=== PATIENT | male | born 1960 | race Caucasian/White ===

== ENCOUNTER 2017-02-15 18:03 | Emergency (ER) | payer OTHER ==
[~2017-02-15] VITALS: Ht 185.4 cm; Wt 95.3 kg
--- NOTE | 2017-02-15 18:07 | ED AMS/SEIZURE/WEAK/DIZZY ---
History of Present Illness General Chief Complaint: Seizure Stated Complaint: BIBA S/P SEIZURE Source: patient, old records, EMS Exam Limitations: intoxication Vital Signs & Intake/Output Vital Signs & Intake/Output Vital Signs Date Time Temp Pulse Resp B/P B/P Pulse O2 O2 Flow FiO2 Mean Ox Delivery Rate 02/15 1809 98.6 128 20 114/72 90 Room Air Allergies Coded Allergies: MDX - Poison Ok Extract, Alum Prec (POISON OK EXTRACT, ALUM PRECIPITAT) (01/09) Reconcile Medications No Known Home Medications Triage Nurses Notes Reviewed? yes HPI: Patient brought in after a witnessed tonic-clonic seizure. Patient admits to drinking alcohol today. Patient was cyanotic upon EMS arrival patient states respirations were assisted with bag valve mask. Patient then became postictal and then woke up. Patient states that he has not taken his medication in the long time because he does not want to. Patient states he drinks every day. Patient states that he does not want to be here and is refusing all blood work. Patient denies any injury. (FATOUMATA BARRIGA,NATANAEL Coronel) Past History Medical History Any Pertinent Medical History? see below for history Neurological: seizure Surgical History Surgical History: non-contributory Psychosocial History Who do you live with Significant Other What is your primary language Polish Tobacco Use: Current Daily Use Daily Tobacco Use Amount/Type: => 5 Cigarettes daily ETOH Use: heavy use Illicit Drug Use: denies illicit drug use Family History Hx Contributory? No (NATANAEL HAM MD) Review of Systems Review of Systems Constitutional: Reports: no symptoms. EENTM: Reports: no symptoms. Respiratory: Reports: no symptoms. Cardiovascular: Reports: no symptoms. GI: Reports: no symptoms. Genitourinary: Reports: no symptoms. Musculoskeletal: Reports: no symptoms. Skin: Reports: no symptoms. Neurological/Psychological: Reports: no symptoms. Hematologic/Endocrine: Reports: no symptoms. Immunologic/Allergic: Reports: no symptoms. All Other Systems: Reviewed and Negative (NATANAEL HAM MD) Physical Exam Physical Exam General Appearance: well developed/nourished, alert, awake, anxious, intoxicated Head: atraumatic Eyes: Bilateral: PERRL, EOMI. Ears, Nose, Throat: normal pharynx, normal ENT inspection, hearing grossly normal Neck: normal inspection, supple, full range of motion Respiratory: normal breath sounds, chest non-tender, no respiratory distress, lungs clear Cardiovascular: regular rate/rhythm, normal peripheral pulses Gastrointestinal: normal bowel sounds, soft, non-tender Back: normal inspection, normal range of motion Extremities: normal range of motion Neurologic/Psych: no motor/sensory deficits, awake, alert, oriented x 3, normal mood/affect Skin: intact, normal color, warm/dry Lymphatic: no anterior cervical mendoza Core Measures ACS in differential dx? No CVA/TIA Diagnosis: No Severe Sepsis Present: No Septic Shock Present: No (FATOUMATA BARRIGA,NATANAEL Coronel) Progress Differential Diagnosis: alcohol intoxication, electrolyte imbalance, seizure disorder Plan of Care: OBSERVE IN ER Initial ED EKG: none Hand-Off Endorsed To: RENATO LEYVA MD Endorsed Time: 1899 Pending: other (SOBRIETY) Comments: Patient's breathalyzer was 0.167. Patient increase his stay in the emergency department until he is sober however he is still refusing all blood work. Patient states he has not been taking his medications Namenda will be safe. (FATOUMATA BARRIGA,NATANAEL Coronel) Plan of Care: PATIENT DISCHARGED BY DR HAM IN CARE OF FAMILY MEMBER. (RENATO LEYVA MD) Departure Departure Disposition: HOME OR SELF CARE Condition: Stable Clinical Impression Primary Impression: Seizure Secondary Impressions: Alcohol intoxication Qualifiers: Complication of substance-induced condition: uncomplicated Qualified Code: F10.920 - Alcohol use, unspecified with intoxication, uncomplicated Referrals: VINCENZO BRUNO (PCP/Family) Additional Instructions: PLEASE RETURN IF YOU WOULD LIKE HELP WITH YOUR MEDICATIONS OR TO STOP DRINKING OR FOR ANY CONCERNS Departure Forms: Customer Survey General Discharge Information Prescriptions: Current Visit Scripts No Known Home Medications (FATOUMATA BARRIGA,NATANAEL Coronel)
[2017-02-15 18:09] VITALS: BP 114/72
== END 2017-02-15 19:07 ==
LOC: ERH 18:03
DX: R56.9 Unspecified convulsions (principal); F10.129 Alcohol abuse with intoxication, unspecified

== ENCOUNTER 2017-11-19 15:32 | Inpatient (IN) | payer OTHER ==
[~2017-11-19] VITALS: Ht 185.4 cm; Wt 91.9 kg
--- NOTE | 2017-11-19 15:37 | ED AMS/SEIZURE/WEAK/DIZZY ---
History of Present Illness General Chief Complaint: General Adult Stated Complaint: BIBA MULTIPLE COMPLAINTS Source: patient, family Exam Limitations: no limitations Vital Signs & Intake/Output Vital Signs & Intake/Output Vital Signs Date Time Temp Pulse Resp B/P B/P Pulse O2 O2 Flow FiO2 Mean Ox Delivery Rate 11/20 0620 98.4 96 20 158/86 91 Room Air 11/20 0205 98.8 86 20 160/88 92 Room Air 11/20 0138 85 92 11/19 2152 98.6 76 20 142/76 90 Room Air 11/19 2006 98.4 82 16 132/80 95 Room Air 11/19 1825 98.3 75 18 116/66 95 Room Air 11/19 1552 93 Room Air Room Air 11/19 1547 98.0 81 15 152/84 93 Room Air Room Air ED Intake and Output 11/20 0000 11/19 1200 Intake Total 0 Output Total Balance 0 Intake, Oral 0 Patient 210 lb Weight Weight Reported by Patient Measurement Method Allergies Coded Allergies: poison candelaria extract (Intermediate, RASH 11/19/17) Triage Nurses Notes Reviewed? yes Onset: Abrupt Duration: changing over time Timing: recent history Severity: severe Severity Numbers: 10 HPI: Patient is a 57-year-old male with a past medical history of alcohol abuse, seizures, delirium tremens hypertension who presents emergency room brought in by ambulance for persistent seizures for the past 7-10 years and which she states he's had them approximate 4 times a day where he is compliant with his Dilantin where he states that he is followed up with multiple neurologist" they keep giving me the same medications". He states his last seizure was approximately 4 hours ago. Patient drank 2 beers and 2 shots today Patient is a 2 pack-a-day smoker denies any new shortness of breath or chest pain however is complaining of persistent abdominal pain for the past month, he does present with old records from [facility] and which CT scan does indicate he was diagnosed with mild diverticulitis and was given prescriptions where he was compliant with the medications and he had a 6 cm renal mass noted at the time. Patient is able tolerate by mouth however he is not eating "well" with solid foods no vomiting has occurred Patient is complaining of severe 7 and 10 abdominal and suprapubic pain. Denies any dysuria hematuria. Patient is complaining of chronic back pain Denies any illicit drugs PT AND STATE THAT HE HAS BEEN HAVING INTERMITTENT HALLUCINATIONS AND UPPER EXTREMITY TREMORS FOR THE PAST MONTH HE DOES DRINK ALCOHOL EVERYDAY. (Lewis Garland) Reconcile Medications Albuterol Sulfate (Proair Hfa) 90 MCG HFA.AER.AD 2 PUF INH Q4-6 PRN PRN SOB ( Reported) Amlodipine Besylate 10 MG TABLET 1 TAB PO DAILY HTN (Reported) Benzonatate 100 MG CAPSULE 1 CAP PO TID COUGH (Reported) Budesonide/Formoterol Fumarate (Symbicort 80-4.5 Mcg Inhaler) 80 MCG-4.5 MCG/ ACTUATION HFA.AER.AD 2 PUF INH BID SOB (Reported) Metoprolol Tartrate 50 MG TABLET 1 TAB PO BID HTN (Reported) Phenytoin (Dilantin) 100 MG CAPSULE 5 CAP PO DAILY seizures (Reported) Phenytoin Sodium Extended 100 MG CAPSULE 1 CAP PO TID SEIZURES (Reported) Simvastatin (Simvastatin*) 10 MG TABLET 1 TAB PO QPM HIGH CHOLESTEROL ( Reported) (Mer BARRIGA,Chandler Coronel) Past History Travel History Traveled to [place] past 21 day No Medical History Any Pertinent Medical History? see below for history Neurological: seizure Cardiovascular: hypertension Psychiatric: alcohol dependence Surgical History Surgical History: non-contributory Psychosocial History Who do you live with Significant Other What is your primary language Burkinan Family History Hx Contributory? No (Lewis Garland) Review of Systems Review of Systems Constitutional: Reports: see HPI. EENTM: Reports: no symptoms. Respiratory: Reports: see HPI, cough. Cardiovascular: Reports: see HPI. Denies: chest pain, edema, palpitations. GI: Reports: see HPI, abdominal pain. Genitourinary: Reports: no symptoms. Musculoskeletal: Reports: see HPI, back pain. Skin: Reports: no symptoms. Neurological/Psychological: Reports: see HPI. Hematologic/Endocrine: Reports: no symptoms. Immunologic/Allergic: Reports: no symptoms. All Other Systems: Reviewed and Negative (Lewis Garland) Physical Exam Physical Exam General Appearance: no apparent distress, alert Head: atraumatic Eyes: Bilateral: normal appearance, PERRL, EOMI, other (HORIZONTAL NYSTAGMUS). Ears, Nose, Throat: normal pharynx, normal ENT inspection, hearing grossly normal Neck: supple Respiratory: no respiratory distress, quiet respiration, lungs clear Cardiovascular: regular rate/rhythm Gastrointestinal: normal bowel sounds, soft, tenderness Extremities: normal range of motion Neurologic/Psych: no motor/sensory deficits, awake, alert, disoriented x 3, NOTED VOLUNTARY UPPER EXTREMITY TREMORS Skin: intact, normal color Core Measures ACS in differential dx? Yes CVA/TIA Diagnosis No Sepsis Present: No Sepsis Focused Exam Completed? No (Cheyenne LORD,Lewis) Progress Differential Diagnosis: arrythmia, alcohol intoxication, anemia, benign positional vertigo, CVA/stroke, dehydration, drug intoxication, encephalitis, electrolyte imbalance, GI bleed, hypoglycemia, hypoxia, intracranial Hem., intracranial mass/tumor, labrynthitis, meningitis, Meniere's disease, migraine BOURNE, pneumonia, postural hypotension, presyncope, post-traumatic vertigo, sepsis, seizure disorder, subarachnoid Hem., UTI/pyelo, vertebrobasilar insuff Plan of Care: Orders Procedure Date/time Status Nothing by Mouth 11/20 B Active HEPATITIS PANEL 11/20 599 Active CBC WITHOUT DIFFERENTIAL 11/20 599 Active BASIC ELECTROLYTES PLUS BUN&CR 11/20 599 Active Precautions 11/20 0019 Active CONTIN. POSITIVE AIRWAY PRESS 11/20 UNK Complete Weight 11/19 223 Active Vital Signs 11/19 2233 Active Teach/Educate 11/19 2233 Active Pain Treatment and Response 11/19 2233 Active Nutritional Intake, Monitor 11/19 2233 Active Isolation 11/19 2233 Active Intake & Output 11/19 2233 Active Patient Care Conference 11/19 2233 Active Activity/Ambulation 11/19 2233 Active Add-on Test (ER Only) 11/19 2054 Active Pathway - chart 11/19 2037 Active House Staff 11/19 2037 Active Patient Data 11/19 1918 Active ED Holding Orders 11/19 191 Active Admit to inpatient 11/19 191 Active Vital Signs 11/19 191 Active Code Status 11/19 191 Active LACTIC ACID 11/19 1855 Complete Add-on Test (ER Only) 11/19 1726 Active US-LIMITED ABDOMEN 11/19 1709 Active Add-on Test (ER Only) 11/19 1709 Active Telemetry/Women Nurse 11/19 1613 Active TYPE & SCREEN (NOT X-MATCH) 11/19 1609 Complete PROLACTIN 11/19 1608 Complete MAGNESIUM 11/19 1608 Complete GAMMA GLUTAMYL TRANSFERASE 11/19 1608 Complete DIRECT BILIRUBIN 11/19 1608 Complete AMMONIA 11/19 1602 Complete PARTIAL THROMBOPLASTIN TIME 11/19 1555 Complete PROTHROMBIN TIME 11/19 1555 Complete LACTIC ACID 11/19 1555 Complete Intake & Output 11/19 1548 Active CIWA 11/19 1539 Complete URINE DRUG SCREEN FOR ER ONLY 11/19 1539 Complete TROPONIN LEVEL 11/19 1539 Complete LIPASE 11/19 1539 Complete ETHANOL 11/19 1539 Complete DILANTIN 11/19 1539 Complete COMPREHENSIVE METABOLIC PANEL 11/19 1539 Complete CBC WITHOUT DIFFERENTIAL 11/19 1539 Complete AMYLASE 11/19 1539 Complete EKG 11/19 1539 Active HEPATIC FUNCTION PANEL 11/19 0600 Active US-COMPLETE ABDOMEN 11/19 UNK Active TRC EVALUATION (GEN) 11/19 UNK Active CONTIN. POSITIVE AIRWAY PRESS 11/19 UNK Complete Lab Add-on Test 11/19 UNK Active VTE Mechanical Prophylaxis 11/19 UNK Active Vital Signs 11/19 UNK Complete Seizure Precautions 11/19 UNK Active CIWA 11/19 UNK Active Current Medications Sig/Dee Start time Last Medication Dose Stop Time Status Admin Amlodipine Besylate 10 MG DAILY 11/20 1000 AC (Norvasc) Budesonide/ 2 PUF BID 11/20 1000 AC Formoterol Fumarate (SYMBICORT) Metoprolol Tartrate 50 MG BID 11/20 1000 AC (Lopressor) Phenytoin 500 MG DAILY 11/20 1000 UNVr (Dilantin ER) Dextrose/Sodium 1,000 ML Q13H 11/19 2315 AC 11/19 Chloride 2333 (D5W-1/2 Normal Saline 1000ML) Albuterol Sulfate 2 PUF Q4-6 PRN PRN 11/19 2244 AC (Ventolin) Hydromorphone HCl 2 MG Q5 PRN 11/19 2245 AC 11/20 (Dilaudid) 0611 Nicotine 21 MG DAILY 11/19 224 AC 11/20 (Nicoderm) 0119 Heparin Sodium 5,000 UNIT Q8 11/19 223 AC 11/20 (Porcine) 0608 Lorazepam 0 Q1P PRN 11/19 223 AC (Ativan) Thiamine HCl 100 MG DAILY 11/19 2137 AC 11/19 (Vitamin B-1) 2330 Sodium Chloride 50 ML (Normal Saline 50ML Bag) Multivitamins 1 TAB DAILY 11/19 2037 AC (Theragran Vitamins) Laboratory Tests 04/07/18 1928: Lactic Acid 2.1 11/19/17 1609: Lactic Acid 2.5 H 11/19/17 1609: Ammonia 13, PT 10.9, INR 1.00, APTT 32, Urine Opiates Screen < 100, Methadone Screen 45, Barbiturate Screen < 60, Ur Phencyclidine Scrn < 6.00, Amphetamines Screen 108, U Benzodiazepines Scrn < 85, Urine Cocaine Screen < 50, Urine Cannabis Screen 6.50 11/19/17 1608: Anion Gap 13, Estimated GFR > 60, BUN/Creatinine Ratio 15.6, Glucose 115 H, Calcium 8.5, Magnesium 1.6, Total Bilirubin 1.7 H, Direct Bilirubin 1.3 H, GGT 1751 H, AST 331 H, ALT 195 H, Alkaline Phosphatase 224 H, Troponin I < 0.01, Total Protein 7.2, Albumin 3.4 L, Globulin 3.8, Albumin/Globulin Ratio 0.9 L, Amylase 39, Lipase 345 H, Prolactin 9.2, CBC w Diff NO MAN DIFF REQ, RBC 5.92, MCV 94.1 H, MCH 31.4 H, MCHC 33.4, RDW 15.9 H, MPV 7.8, Gran % 68.8, Lymphocytes % 23.2, Monocytes % 7.1, Eosinophils % 0.7, Basophils % 0.2, Absolute Granulocytes 6.9 H, Absolute Lymphocytes 2.3, Absolute Monocytes 0.7 H, Absolute Eosinophils 0.1, Absolute Basophils 0, Phenytoin 10.2, Serum Alcohol 290.0 Upon initial examination patient is resting comfortably at bedside however is disoriented 3 Patient was placed with a clinical research monitor in which there is noted a run of V. tach versus wide complex QRS OR ARTIFACT, Patient was prophylactically administered magnesium Dr. Del Angel was more SUSPICIOUS OF ARTIFACT THAN V. tach however he did discuss patient with volunteer fire fighter Dr. Tavarez I reviewed patient's blood work in which she had elevated liver and gallbladder enzymes however patient's alcohol was nearly 300. Patient was offered alcohol detoxification evaluation and treatment in which he declines this CT scan was resulted in which there is a 1.5 cm gallstone in the gallbladder neck Discussed patient with surgeon Dr. Baltazar who will consult Due to patient's continued abdominal pain and elevated liver enzymes, BILIRUBIN and gallstone that admission was warranted I also discussed the telemetry artifact with Dr. Tavarez who was able to observe and evaluate the picture of the suspecting artifact versus V. tach where he states it is artifact Diagnostic Imaging: Viewed by Me: CT Scan. Radiology Impression: SEE COMMENTS Initial ED EK BPM,SINUS RHYTHM Comments: PATIENT: PJ LUNA PRESENT AGE: 57 PATIENT ACCOUNT NO: [id number] : 61 LOCATION: [facility] ORDERING PHYSICIAN: Lewis LORD SERVICE DATE: 11/19/17 EXAM TYPE: CAT - CT ABD & PELVIS W IV CONTRAST EXAMINATION: CT ABD PELVIS W IV CONTRAST CLINICAL INFORMATION: Reason for Study:
Presumptive Dx: ABDOMINAL PAIN, ELEVATED LFT,BILI,
Signs Symptoms: RM 19
COMPARISON: None TECHNIQUE: Multidetector volumetric imaging was performed from the superior aspect of the liver through the pubic symphysis 95 mL of Optiray 320 injected Sagittal and coronal reformatted images were obtained on the technologist's workstation. DLP: 760 mGy-cm FINDINGS: LOWER THORAX: Partially included nodule of the LEFT lower lobe measure about 6 x 4 mm on image 1 series 2. HEPATOBILIARY: The liver is diffusely hypodense suggesting possible hepatic steatosis. No focal hepatic lesions. No biliary ductal dilatation. GALLBLADDER: There is a large gallstone lodged at the gallbladder neck measure about 1.5 cm. SPLEEN: Spleen is normal in size. PANCREAS: There is mild peripancreatic fat stranding around the body and tail of the pancreas raising concern for possible mild pancreatitis. No CT evidence of the pancreatic necrosis or other complications. STOMACH AND GASTROINTESTINAL TRACT: Stomach is grossly unremarkable. There is diverticulosis of the sigmoid colon, no CT evidence of acute diverticulitis. No CT evidence of appendicitis. ADRENALS: No adrenal nodules. KIDNEYS/URETERS: Heterogeneous solid mass protruding from the upper pole of the LEFT kidney measures about 6.1 x 5.3 cm axially and 5.8 cm craniocaudally. This is worrisome for renal neoplasm especially RCC. URINARY BLADDER: Unremarkable PELVIC VISCERA: Unremarkable PERITONEUM: No free air or fluid. LYMPH NODES: No lymphadenopathy. VASCULAR: Unremarkable BONES, ABDOMINAL WALL AND SOFT TISSUES: Age-appropriate changes of the spine and skeletal system, no destructive osteolytic or osteosclerotic bone lesion found IMPRESSION: 1. Large solid heterogeneously enhancing mass protruding from the upper pole LEFT kidney measure up to 6.1 cm worrisome for possible renal cell carcinoma. Urology consultation warranted. 2. Mild peripancreatic fat stranding around the body and tail of the pancreas concerning for possible pancreatitis. Correlation with patient's laboratory data recommended. No CT evidence of complication. 3. Hypodense liver suggesting hepatic steatosis. 4. Large 1.5 cm stone lodged at the gallbladder neck. 5. Diverticulosis without evidence of acute diverticulitis. 6. Incidental finding was made of 6 mm nodule at LEFT lower lobe partially included in this study, May consider follow-up CT chest. (Referring physician will be called, alerted of the above findings and recommendations. ) DICTATED BY: Eli Sunshine MD DATE/TIME DICTATED:11/19/171815 NUTRITIONAL SERVICES COOK:SUSANNA DATE/TIME TRANSCRIBED:11/19/17 PATIENT: PJ LUNA PRESENT AGE: 57 PATIENT ACCOUNT NO: [id number] : 62 LOCATION: [facility] ORDERING PHYSICIAN: Lewis LORD SERVICE DATE: 11/19/17 EXAM TYPE: CAT - CT HEAD WO IV CONTRAST EXAMINATION: CT HEAD without contrast CLINICAL INFORMATION: Seizure COMPARISON: No prior CT scan available for comparison. TECHNIQUE: Computer axial tomographic sections acquired at 2.5 mm thin sections with reconstruction in the coronal plane. 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 No CT evidence of acute new infarct. BRAIN PARENCHYMA: Atrophy SUBDURAL SPACE: No bleed. BASAL GANGLIA AND PINEAL GLAND: Unremarkable VENTRICLES: Symmetric and normal in size. CEREBELLUM AND BRAINSTEM: No space-occupying mass, hemorrhage or acute infarct. CEREBELLOPONTINE ANGLES: No lesion found. ORBITS: No intraorbital mass. VESSELS: Unremarkable SKULL BASE: Unremarkable INCLUDED SINUSES AT SKULL BASE: Clear SKULL AND SKIN: No fracture or bone lesion found. IMPRESSION: 1. 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 2. Deep white matter and periventricular hypoattenuation, nonspecific; however, in this patient's age group most likely sequela of chronic microvascular angiopathy ischemia. DICTATED BY: Eli Sunshine MD DATE/TIME DICTATED:11/19/171811 NUTRITIONAL SERVICES COOK:SUSANNA DATE/TIME TRANSCRIBED:11/19/17 / (Lewis Garland) Departure Departure Disposition: STILL A PATIENT Condition: Stable Clinical Impression Primary Impression: Alcoholic hepatitis Secondary Impressions: Abdominal pain, Alcohol abuse, Gallstone, Renal mass, left Referrals: Rory Valadez MD (PCP/Family) Departure Forms: Customer Survey General Discharge Information Admission Note Spoke With: Todd Sheehan MD Documentation of Exam: Documentation of any treatments & extenuating circumstances including Concerns Regarding Discharge (functional status, medication knowledge or non-compliance, living conditions, etc.) that warrant an admission rather than observation: [ Patient requires pain management surgery consultation, repeat labs,CIWA, IV fluids GI consult renal consult] (Lewis Garland) PA/SALES AND SERVICE TECHNICIAN Co-Sign Statement Statement: ED Attending supervision documentation- [X] I saw and evaluated the patient. I have also reviewed all the pertinent lab results and diagnostic results. I agree with the findings and the plan of care as documented in the PA's/SALES AND SERVICE TECHNICIAN's documentation. [X] I have reviewed the ED Record and agree with the PA's/SALES AND SERVICE TECHNICIAN's documentation. [] Additions or exceptions (if any) to the PAs/SALES AND SERVICE TECHNICIAN's note and plan are summarized below: [ELEVATED LFT'S, GALL STONE, ALCOHOLIC WHO DOES NOT WANTALCOHOL DETOX BUT ISAT HIGH RISK OF WITHDRAWAL SEIZURES.] (Mer BARRIGA,Chandler Coronel)
[2017-11-19 16:30] LABS: ABSOLUTE BASOPHIL COUNT 0 /CUMM (0.0-0.2); ABSOLUTE EOSINOPHIL COUNT 0.1 /CUMM (0.0-0.7); ABSOLUTE GRANULOCYTE CT 6.9 /CUMM (1.4-6.5); ABSOLUTE LYMPH COUNT 2.3 /CUMM (1.2-3.4); ABSOLUTE MONOCYTE COUNT 0.7 /CUMM (0.10-0.60); BASOPHIL % 0.2 % (0.0-2.0); EOSINOPHIL % 0.7 % (0-5); GRANULOCYTE % 68.8 % (42.2-75.2); HEMATOCRIT 55.7 % (42-52); MEAN CORPUSCULAR HGB 31.4 PG (27.0-31.0); MEAN CORPUSCULAR HGB CONC 33.4 G/DL (33.0-37.0); MEAN CORPUSCULAR VOLUME 94.1 FL (80.0-94.0); MEAN PLATELET VOLUME 7.8 FL (7.4-10.4); PLATELET COUNT 201 /CUMM (130-400); RBC DISTRIBUTION WIDTH 15.9 % (11.5-14.5); RED BLOOD CELL CT 5.92 /CUMM (4.70-6.10)
[2017-11-19 16:37] LABS: PT 10.9 SEC (9.4-12.5); PTT 32 SEC (25-37)
--- NOTE | 2017-11-19 18:19 | CT SCAN REPORT ---
EXAMINATION: CT HEAD without contrast CLINICAL INFORMATION: Seizure COMPARISON: No prior CT scan available for comparison. TECHNIQUE: Computer axial tomographic sections acquired at 2.5 mm thin sections with reconstruction in the coronal plane. 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 No CT evidence of acute new infarct. BRAIN PARENCHYMA: Atrophy SUBDURAL SPACE: No bleed. BASAL GANGLIA AND PINEAL GLAND: Unremarkable VENTRICLES: Symmetric and normal in size. CEREBELLUM AND BRAINSTEM: No space-occupying mass, hemorrhage or acute infarct. CEREBELLOPONTINE ANGLES: No lesion found. ORBITS: No intraorbital mass. VESSELS: Unremarkable SKULL BASE: Unremarkable INCLUDED SINUSES AT SKULL BASE: Clear SKULL AND SKIN: No fracture or bone lesion found. IMPRESSION: 1. 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 2. Deep white matter and periventricular hypoattenuation, nonspecific; however, in this patient's age group most likely sequela of chronic microvascular angiopathy ischemia.
--- NOTE | 2017-11-19 18:22 | RADIOLOGY REPORT ---
EXAMINATION: XR CHEST CLINICAL INFORMATION: Chronic cough. COMPARISON: Chest radiography 06/05/2013. TECHNIQUE: 2 views of the chest were obtained. FINDINGS: The lungs are well expanded. There is mild interstitial/bronchovascular prominence. No overt pulmonary edema, focal lobar consolidation, pleural effusion, or pneumothorax. Mediastinal contours are not widened. No acute osseous abnormalities. IMPRESSION: Mild interstitial/bronchovascular prominence could represent small airways inflammation.
--- NOTE | 2017-11-19 18:35 | CT SCAN REPORT ---
EXAMINATION: CT ABD PELVIS W IV CONTRAST CLINICAL INFORMATION: Reason for Study:
Presumptive Dx: ABDOMINAL PAIN, ELEVATED LFT,BILI,
Signs Symptoms: RM 19
COMPARISON: None TECHNIQUE: Multidetector volumetric imaging was performed from the superior aspect of the liver through the pubic symphysis 95 mL of Optiray 320 injected Sagittal and coronal reformatted images were obtained on the technologist's workstation. DLP: 760 mGy-cm FINDINGS: LOWER THORAX: Partially included nodule of the LEFT lower lobe measure about 6 x 4 mm on image 1 series 2. HEPATOBILIARY: The liver is diffusely hypodense suggesting possible hepatic steatosis. No focal hepatic lesions. No biliary ductal dilatation. GALLBLADDER: There is a large gallstone lodged at the gallbladder neck measure about 1.5 cm. SPLEEN: Spleen is normal in size. PANCREAS: There is mild peripancreatic fat stranding around the body and tail of the pancreas raising concern for possible mild pancreatitis. No CT evidence of the pancreatic necrosis or other complications. STOMACH AND GASTROINTESTINAL TRACT: Stomach is grossly unremarkable. There is diverticulosis of the sigmoid colon, no CT evidence of acute diverticulitis. No CT evidence of appendicitis. ADRENALS: No adrenal nodules. KIDNEYS/URETERS: Heterogeneous solid mass protruding from the upper pole of the LEFT kidney measures about 6.1 x 5.3 cm axially and 5.8 cm craniocaudally. This is worrisome for renal neoplasm especially RCC. URINARY BLADDER: Unremarkable PELVIC VISCERA: Unremarkable PERITONEUM: No free air or fluid. LYMPH NODES: No lymphadenopathy. VASCULAR: Unremarkable BONES, ABDOMINAL WALL AND SOFT TISSUES: Age-appropriate changes of the spine and skeletal system, no destructive osteolytic or osteosclerotic bone lesion found IMPRESSION: 1. Large solid heterogeneously enhancing mass protruding from the upper pole LEFT kidney measure up to 6.1 cm worrisome for possible renal cell carcinoma. Urology consultation warranted. 2. Mild peripancreatic fat stranding around the body and tail of the pancreas concerning for possible pancreatitis. Correlation with patient's laboratory data recommended. No CT evidence of complication. 3. Hypodense liver suggesting hepatic steatosis. 4. Large 1.5 cm stone lodged at the gallbladder neck. 5. Diverticulosis without evidence of acute diverticulitis. 6. Incidental finding was made of 6 mm nodule at LEFT lower lobe partially included in this study, May consider follow-up CT chest. (Referring physician will be called, alerted of the above findings and recommendations. )
[2017-11-19] MEDS ORDERED: SIMVASTATIN10 M1 PO (20:13)
[2017-11-19] MEDS ORDERED: AMLODIPINE BESY10 M1 PO (20:13)
[2017-11-19] MEDS ORDERED: METOPROLOL TART50 M1 PO (20:13)
[2017-11-19] MEDS ORDERED: PHENYTOIN SODI100 MG PO (20:13)
[2017-11-19] MEDS ORDERED: SYMBICORT 80-10.2 GM INH (20:14)
[2017-11-19] MEDS ORDERED: BENZONATATE100 M1 PO (20:14)
[2017-11-19] MEDS ORDERED: PROAIR HFA8.5 GM INH (20:15)
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
[2017-11-19 21:52] VITALS: BP 142/76
[2017-11-20 02:05] VITALS: BP 160/88
[2017-11-20 06:20] VITALS: BP 158/86
[2017-11-20 08:28] LABS: ABSOLUTE BASOPHIL COUNT 0 /CUMM (0.0-0.2); ABSOLUTE EOSINOPHIL COUNT 0.1 /CUMM (0.0-0.7); ABSOLUTE GRANULOCYTE CT 4.9 /CUMM (1.4-6.5); ABSOLUTE LYMPH COUNT 1.9 /CUMM (1.2-3.4); ABSOLUTE MONOCYTE COUNT 0.4 /CUMM (0.10-0.60); BASOPHIL % 0.7 % (0.0-2.0); EOSINOPHIL % 1.4 % (0-5); GRANULOCYTE % 66.9 % (42.2-75.2); MEAN CORPUSCULAR HGB 32.7 PG (27.0-31.0); MEAN CORPUSCULAR VOLUME 93.2 FL (80.0-94.0); MEAN PLATELET VOLUME 7.9 FL (7.4-10.4); PLATELET COUNT 138 /CUMM (130-400); RBC DISTRIBUTION WIDTH 15.8 % (11.5-14.5); RED BLOOD CELL CT 4.75 /CUMM (4.70-6.10); WHITE BLOOD CELL COUNT 7.3 /CUMM (4.8-10.8)
[2017-11-20 09:38] LABS: HEMATOCRIT 44.3 % (42-52)
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
[2017-11-20 10:22] VITALS: BP 150/100
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
[2017-11-20 15:12] VITALS: BP 160/90
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
--- NOTE | 2017-11-20 15:34 | ULTRASOUND REPORT ---
EXAMINATION: US ABDOMEN COMPLETE CLINICAL INFORMATION: Abdominal pain, nausea, vomiting.. COMPARISON: CT abdomen pelvis 11/19/2017. TECHNIQUE: Real-time imaging of the abdominal viscera. FINDINGS: PANCREAS: Not well visualized secondary to bowel gas obscuration. ABDOMINAL AORTA: The proximal segment is normal in caliber. INFERIOR VENA CAVA: Visualized portions are normal. LIVER: Increased hepatic echogenicity consistent with hepatic steatosis. No focal hepatic lesion. No intrahepatic biliary ductal dilatation. GALLBLADDER: There is a mobile gallstone within the gallbladder lumen. No gallbladder wall thickening or reported sonographic Bauman sign. COMMON BILE DUCT: Normal in caliber measuring 0.5 cm in diameter. RIGHT KIDNEY: Normal. No hydronephrosis. No renal calculi or focal parenchymal lesions. The kidney measures 11.9 cm in maximum dimension. LEFT KIDNEY: There is a 6 cm rounded mass off of the upper pole the left kidney. No hydronephrosis. No renal calculi or focal parenchymal lesions. The kidney measures 13.3 cm in maximum dimension. SPLEEN: Normal. The spleen measures 10.1 cm in maximum dimension. FREE FLUID: None. IMPRESSION: 1. Left renal mass redemonstrated, concerning for renal cell carcinoma. 2. Cholelithiasis without evidence of cholecystitis. 3. No biliary ductal dilatation. 4. Hepatic steatosis.
[2017-11-20 18:00] VITALS: BP 158/102
[2017-11-20 22:00] VITALS: BP 160/102; BP 168/102
[2017-11-21 02:16] VITALS: BP 132/90
[2017-11-21 06:37] VITALS: BP 142/92
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
[2017-11-21 08:55] LABS: ABSOLUTE BASOPHIL COUNT 0 /CUMM (0.0-0.2); ABSOLUTE EOSINOPHIL COUNT 0.2 /CUMM (0.0-0.7); ABSOLUTE GRANULOCYTE CT 5.2 /CUMM (1.4-6.5); ABSOLUTE LYMPH COUNT 1.7 /CUMM (1.2-3.4); ABSOLUTE MONOCYTE COUNT 0.4 /CUMM (0.10-0.60); BASOPHIL % 0.5 % (0.0-2.0); EOSINOPHIL % 2.2 % (0-5); GRANULOCYTE % 69.4 % (42.2-75.2); HEMATOCRIT 42.9 % (42-52); MEAN CORPUSCULAR HGB 32.5 PG (27.0-31.0); MEAN CORPUSCULAR HGB CONC 34.7 G/DL (33.0-37.0); MEAN CORPUSCULAR VOLUME 93.6 FL (80.0-94.0); MEAN PLATELET VOLUME 8.3 FL (7.4-10.4); RED BLOOD CELL CT 4.59 /CUMM (4.70-6.10); WHITE BLOOD CELL COUNT 7.5 /CUMM (4.8-10.8)
[2017-11-21 10:11] LABS: PLATELET COUNT 103 /CUMM (130-400)
[2017-11-21 12:15] VITALS: BP 130/80
--- NOTE | 2017-11-21 14:26 | MRI REPORT ---
EXAMINATION: MR ABDOMEN WITHOUT CONTRAST/MRCP CLINICAL INFORMATION: Pancreatitis. COMPARISON: Ultrasound of the abdomen dated 11/20/2017. CT scan of the abdomen and pelvis dated 11/19/2017 TECHNIQUE: An MRI scan of the abdomen was performed using multiple imaging sequences and imaging planes. As per the MRCP protocol, heavily T2-weighted 3-D high-resolution MRCP sequences were obtained in the coronal plane along with thin and thick slab coronal images and coronal MIP reconstructions obtained on the technologist workstation under concurrent physician supervision. FINDINGS: LIVER: The liver is normal in size and diffusely lower in signal compared to the spleen, consistent with diffuse hepatic steatosis. No focal cystic or solid mass is seen on noncontrast exam. GALLBLADDER/BILIARY TREE: The gallbladder is well distended and demonstrates a 1.5 x 1.1 cm gallstone, similar to the previous exams. The gallbladder is otherwise unremarkable. No gallbladder wall thickening or pericholecystic fluid is seen. No intra-or extrahepatic ductal dilatation is seen. Common bile duct measures 0.5 cm in diameter. No abnormal filling defect is seen within the biliary tree. PANCREAS: As seen on the CT scan, there is minimal edema in the peripancreatic fat surrounding the pancreatic body and tail, consistent with mild acute pancreatitis. Remainder of the pancreas is unremarkable. No pancreatic ductal dilatation or variant anatomy of the duct is seen. No defined peripancreatic fluid collections are seen. SPLEEN: Normal size and appearance. Splenic vein patent. ADRENAL GLANDS AND KIDNEYS: Adrenal glands normal. Kidneys bilaterally symmetric in size and function. No focal mass, hydronephrosis, or perinephric stranding. BOWEL LOOPS: Grossly within normal limits. LYMPHOVASCULAR STRUCTURES: Abdominal aorta normal in caliber. No periaortic collections. No abdominal adenopathy or free fluid collection. BONES: Within normal limits to the extent included. IMPRESSION: 1. Mild peripancreatic edema seen surrounding the body and tail, unchanged from recent CT scan of the abdomen and pelvis and consistent with mild pancreatitis. 2. No peripancreatic focal fluid collections are noted. 3. Cholelithiasis with no evidence of acute cholecystitis or biliary obstruction. 4. Diffuse hepatic steatosis.
[2017-11-21 15:25] VITALS: BP 120/80
[2017-11-21 21:23] VITALS: BP 120/80
[2017-11-22] VITALS (7 sets, daily range): BP systolic 112–120; BP diastolic 0–80
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
[2017-11-22 08:29] LABS: ABSOLUTE BASOPHIL COUNT 0 /CUMM (0.0-0.2); ABSOLUTE EOSINOPHIL COUNT 0.2 /CUMM (0.0-0.7); ABSOLUTE GRANULOCYTE CT 4.3 /CUMM (1.4-6.5); ABSOLUTE LYMPH COUNT 1.6 /CUMM (1.2-3.4); ABSOLUTE MONOCYTE COUNT 0.4 /CUMM (0.10-0.60); BASOPHIL % 0.5 % (0.0-2.0); EOSINOPHIL % 2.6 % (0-5); GRANULOCYTE % 66.2 % (42.2-75.2); HEMATOCRIT 41.4 % (42-52); MEAN CORPUSCULAR HGB 32.7 PG (27.0-31.0); MEAN CORPUSCULAR HGB CONC 34.6 G/DL (33.0-37.0); MEAN CORPUSCULAR VOLUME 94.6 FL (80.0-94.0); MEAN PLATELET VOLUME 8.6 FL (7.4-10.4); PLATELET COUNT 90 /CUMM (130-400); RBC DISTRIBUTION WIDTH 15.6 % (11.5-14.5); RED BLOOD CELL CT 4.38 /CUMM (4.70-6.10); WHITE BLOOD CELL COUNT 6.6 /CUMM (4.8-10.8)
--- NOTE | 2017-11-22 15:22 | Patient Discharge Instructions ---
Discharge Instructions General Discharge Information You were seen/treated for: Abdominal Pain Special Instructions: Follow up with primary care physician within 3-5 days. Please follow-up with your urologists tomorrow for the kidney findings. Please follow-up with the GI doctor within 14 days we have provided you with the referral. Acute Coronary Syndrome Inclusion Criteria At DC or during hospital stay patient has or had the following: ACS DIAGNOSIS No Discharge Core Measures Meds if any: Prescribed or Continued at Discharge Meds if any: NOT Prescribed or Continued at Discharge Congestive Heart Failure Inclusion Criteria At DC or during hospital stay patient has or had the following: CHF DIAGNOSIS No Discharge Core Measures Meds if any: Prescribed or Continued at Discharge Meds if any: NOT Prescribed or Continued at Discharge Cerebrovascular accident Inclusion Criteria At DC or during hospital stay patient has or had the following: CVA/TIA Diagnosis No Discharge Core Measures Meds if any: Prescribed or Continued at Discharge Meds if any: NOT Prescribed or Continued at Discharge Venous thromboembolism Inclusion Criteria VTE Diagnosis No VTE Type NONE VTE Confirmed by (Test) NONE Discharge Core Measures - Per Current guidelines, there needs to be overlap - treatment for the first 5 days of Warfarin therapy. - If discharged on Warfarin prior to 5 days of - overlap therapy, the patient will need to be - assessed for post discharge needs including - *Post discharge parental anticoagulation - *Warfarin and/or parental anticoagulation education - *Follow up date to check INR post discharge At least 5 days overlap therapy as Inpatient No Meds if any: Prescribed or Continued at Discharge Note: Overlap Therapy is Warfarin and Anticoagulant Meds if any: NOT Prescribed or Continued at Discharge
[2017-11-23 06:00] VITALS: BP 130/84
[2017-11-23 06:45] VITALS: BP 130/84
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
[2017-11-23 08:15] VITALS: BP 144/90
[2017-11-23 08:31] LABS: ABSOLUTE BASOPHIL COUNT 0 /CUMM (0.0-0.2); ABSOLUTE EOSINOPHIL COUNT 0.2 /CUMM (0.0-0.7); ABSOLUTE LYMPH COUNT 2.3 /CUMM (1.2-3.4); ABSOLUTE MONOCYTE COUNT 0.5 /CUMM (0.10-0.60); BASOPHIL % 0.6 % (0.0-2.0); EOSINOPHIL % 3.3 % (0-5); GRANULOCYTE % 56.4 % (42.2-75.2); HEMATOCRIT 41.5 % (42-52); MEAN CORPUSCULAR HGB 32.5 PG (27.0-31.0); MEAN CORPUSCULAR HGB CONC 33.6 G/DL (33.0-37.0); MEAN CORPUSCULAR VOLUME 96.7 FL (80.0-94.0); MEAN PLATELET VOLUME 8.9 FL (7.4-10.4); PLATELET COUNT 89 /CUMM (130-400); RBC DISTRIBUTION WIDTH 16.2 % (11.5-14.5); RED BLOOD CELL CT 4.29 /CUMM (4.70-6.10); WHITE BLOOD CELL COUNT 7.2 /CUMM (4.8-10.8)
[2017-11-23] MEDS ORDERED: DILAUDID4 M1 PO (13:24)
[2017-11-23] MEDS ORDERED: DILANTIN100 M1 PO (14:37)
--- NOTE | 2017-11-23 15:48 | PN- Gastroenterology ---
Assessment/Plan GI Assessment/Recommendations: 1. Abnormal LFTs/bilirubin. Most likely diagnosis is alcoholic hepatitis. There is no coagulopathy, nor clinical/laboratory evidence of cirrhosis at this time, aside from thrombocytopenia. MRCP was negative for evidence of obstruction/choledocholithiasis. The patient's gallbladder stone is likely incidental. 2. Upper abdominal pain. This has resolved. The patient cannot relay a good history. This seems to be chronic/recurrent, and likely of an abdominal wall etiology, although cannot rule out component of biliary colic/disease, recurrent or chronic pancreatitis (alcohol, gallstones), gastritis/peptic ulcer disease, etc. 3. Acute constipation, lower abdominal pain. There apparently was a recent episode of diverticulitis, although this is not evident on current imaging. Improved in-hospital, with cathartic therapy. There is still some residual left lower quadrant pain and tenderness. 4. Worrisome left kidney mass. The patient is to be seen by urology tomorrow as outpatient. 5. Solid food dysphagia. Previously evaluated, no details available. Recommendations * Obtain records from [facility], including evaluation of dysphagia, renal mass, lower abdominal pain * Daily MiraLAX * Urology evaluation * Outpatient appointment with me, in approximately 2 weeks. The patient will need EGD and colonoscopy, and follow-up of liver disease. Subjective Subjective: Upper abdominal pain has resolved. There is still persistent left lower quadrant pain, but this has improved. The patient has been defecating. There's been no dysuria. Objective Vital Signs and I&Os Vital Signs Date Time Temp Pulse Resp B/P B/P Pulse O2 O2 Flow FiO2 Mean Ox Delivery Rate 11/23 0815 72 144/90 11/23 0814 72 144/90 11/23 0645 97.8 79 20 130/84 95 Room Air 11/23 0600 97.8 79 20 130/84 11/23 0002 80 92 11/22 2140 98.0 101 18 118/80 97 11/225 80 122/70 Intake & Output 11/23 1600 11/23 0400 11/22 1600 11/22 0400 11/21 1600 11/21 040 Intake Total 750 290 687 663 5774 1400 Output Total 952 020 8170 Balance 750 290 0 900 850 50 Intake, IV 0 10 1800 600 Intake, Oral 750 280 200 900 800 Number 3 Bowel Movements Output, Urine [phone] Patient 203 lb Weight Physical Exam: Alert, oriented. Sclera anicteric. No adenopathy. Abdomen is soft, nondistended, normal bowel sounds; there is left lower quadrant tenderness, without mass, hernia, organomegaly. Current Medications: Current Medications Sig/Dee Start time Last Medication Dose Route Stop Time Status Admin Albuterol Sulfate 2 PUF Q4-6 PRN PRN 11/19 2245 DCD INH Amlodipine Besylate 10 MG DAILY 11/20 1000 DCD 11/23 PO 0814 Bisacodyl 10 MG DAILY PRN 11/[address] Budesonide/ 2 PUF BID 11/20 1000 DCD 11/23 Formoterol Fumarate INH 0825 Heparin Sodium 5,000 UNIT Q8 11/19 2231 DC 11/23 (Porcine) SC 0601 Hydromorphone HCl 4 MG Q5 PRN 11/22 0854 DCD 11/23 PO 1140 Lorazepam 0 Q1P PRN 11/19 2230 DCD 11/22 IV 1458 Metoprolol Tartrate 50 MG BID 11/20 1000 DCD 11/23 PO 0815 Multivitamins 1 TAB DAILY 11/19 2038 DCD 11/23 PO 0816 Nicotine 21 MG DAILY 11/19 2245 DCD 11/23 TOP 0824 Phenytoin 200 MG 2200 11/20 2200 DCD 11/22 PO 2024 Phenytoin 300 MG DAILY 11/20 1200 DCD 11/23 PO 0815 Polyethylene Glycol 17 GM DAILY 11/21 1000 DCD PO Thiamine HCl 100 MG DAILY 11/22 1000 DCD 11/23 PO 0815 Thiamine HCl 100 MG DAILY 11/19 2138 DC 11/21 Sodium Chloride 50 ML IV 0919 Results Pertinent Lab Results: Laboratory Tests 11/23 11/22 0638 1020 Chemistry Sodium (137 - 145 mmol/L) 135 L Potassium (3.5 - 5.1 mmol/L) 3.8 Chloride (98 - 107 mmol/L) 97 L Carbon Dioxide (22 - 30 mmol/L) 29 Anion Gap (5 - 16) 10 BUN (9 - 20 mg/dL) 3 L Creatinine (0.7 - 1.2 mg/dL) 0.8 Estimated GFR (>60 ml/min) > 60 BUN/Creatinine Ratio (7 - 25 %) 3.8 L Total Bilirubin (0.2 - 1.3 mg/dL) 1.0 Direct Bilirubin (< 0.4 mg/dL) 0.8 H AST (17 - 59 U/L) 72 H ALT (21 - 72 U/L) 84 H Alkaline Phosphatase (< 127 U/L) 180 H Total Protein (6.3 - 8.2 g/dL) 5.8 L Albumin (3.5 - 5.0 g/dL) 2.9 L Hematology CBC w Diff NO MAN DIFF REQ WBC (4.8 - 10.8 /CUMM) 7.2 RBC (4.70 - 6.10 /CUMM) 4.29 L Hgb (14.0 - 18.0 G/DL) 13.9 L Hct (42 - 52 %) 41.5 L MCV (80.0 - 94.0 FL) 96.7 H MCH (27.0 - 31.0 PG) 32.5 H MCHC (33.0 - 37.0 G/DL) 33.6 RDW (11.5 - 14.5 %) 16.2 H Plt Count (130 - 400 /CUMM) 89 L MPV (7.4 - 10.4 FL) 8.9 Gran % (42.2 - 75.2 %) 56.4 Lymphocytes % (20.5 - 51.1 %) 32.0 Monocytes % (1.7 - 9.3 %) 7.7 Eosinophils % (0 - 5 %) 3.3 Basophils % (0.0 - 2.0 %) 0.6 Absolute Granulocytes (1.4 - 6.5 /CUMM) 4.0 Absolute Lymphocytes (1.2 - 3.4 /CUMM) 2.3 Absolute Monocytes (0.10 - 0.60 /CUMM) 0.5 Absolute Eosinophils (0.0 - 0.7 /CUMM) 0.2 Absolute Basophils (0.0 - 0.2 /CUMM) 0 Urines Urine Color (YEL,AMB,STR) DORINA Urine Clarity (CLEAR) CLEAR Urine pH (5.0 - 8.0) 6.5 Ur Specific [place] (1.001 - 1.035) 1.010 Urine Protein (NEG,<30 MG/DL) NEG Urine Ketones (NEG) NEG Urine Nitrite (NEG) NEG Urine Bilirubin (NEG) NEG Urine Urobilinogen (0.1 - 1.0 EU/dl) 4.0 H Ur Leukocyte Esterase (NEG) NEG Ur Microscopic EXAM NOT REQUIRED Urine Hemoglobin (NEG) NEG Urine Glucose (N MG/DL) NEG 11/22 11/21 0711 0800 Chemistry Sodium (137 - 145 mmol/L) 135 L 132 L Potassium (3.5 - 5.1 mmol/L) 3.7 3.7 Chloride (98 - 107 mmol/L) 98 97 L Carbon Dioxide (22 - 30 mmol/L) 29 28 Anion Gap (5 - 16) 9 7 BUN (9 - 20 mg/dL) 4 L 6 L Creatinine (0.7 - 1.2 mg/dL) 0.7 0.8 Estimated GFR (>60 ml/min) > 60 > 60 BUN/Creatinine Ratio (7 - 25 %) 5.7 L 7.5 Total Bilirubin (0.2 - 1.3 mg/dL) 2.0 H 2.4 H Direct Bilirubin (< 0.4 mg/dL) 1.2 H 1.2 H AST (17 - 59 U/L) 103 H 150 H ALT (21 - 72 U/L) 100 H 125 H Alkaline Phosphatase (< 127 U/L) 176 H 198 H Total Protein (6.3 - 8.2 g/dL) 5.9 L 5.9 L Albumin (3.5 - 5.0 g/dL) 2.8 L 2.7 L Hematology CBC w Diff NO MAN DIFF REQ NO MAN DIFF REQ WBC (4.8 - 10.8 /CUMM) 6.6 7.5 RBC (4.70 - 6.10 /CUMM) 4.38 L 4.59 L Hgb (14.0 - 18.0 G/DL) 14.3 14.9 Hct (42 - 52 %) 41.4 L 42.9 MCV (80.0 - 94.0 FL) 94.6 H 93.6 MCH (27.0 - 31.0 PG) 32.7 H 32.5 H MCHC (33.0 - 37.0 G/DL) 34.6 34.7 RDW (11.5 - 14.5 %) 15.6 H 16.0 H Plt Count (130 - 400 /CUMM) 90 L 103 L MPV (7.4 - 10.4 FL) 8.6 8.3 Gran % (42.2 - 75.2 %) 66.2 69.4 Lymphocytes % (20.5 - 51.1 %) 24.9 22.7 Monocytes % (1.7 - 9.3 %) 5.8 5.2 Eosinophils % (0 - 5 %) 2.6 2.2 Basophils % (0.0 - 2.0 %) 0.5 0.5 Absolute Granulocytes (1.4 - 6.5 /CUMM) 4.3 5.2 Absolute Lymphocytes (1.2 - 3.4 /CUMM) 1.6 1.7 Absolute Monocytes (0.10 - 0.60 /CUMM) 0.4 0.4 Absolute Eosinophils (0.0 - 0.7 /CUMM) 0.2 0.2 Absolute Basophils (0.0 - 0.2 /CUMM) 0 0 Imaging/Other Studies: MRCP negative for choledocholithiasis/biliary obstruction.
== END 2017-11-23 15:01 | DRG 280 ==
LOC: ERH 15:32 → ERHI 19:18 → 2NA 19:18 → ENRESERV 19:58 → ENTRNSPT 21:05 → EDTRNSPT 21:15 → EDTRNSPTSTS 21:30 → 2NA 21:40 → CMPTRNSPT 21:48 → 2NA 11-21 09:49 → ENPENDDIS 11-23 13:33 → 2NA 11-23 15:01
PROVIDERS: Internal Medicine; Physician Assistant; Student in an Organized Health Care Education/Training Program
DX: K70.10 Alcoholic hepatitis without ascites (principal); F10.20 Alcohol dependence, uncomplicated; Y90.8 Blood alcohol level of 240 mg/100 ml or more; G40.909 Epilepsy, unspecified, not intractable, without status epilepticus; Z87.820 Personal history of traumatic brain injury; R27.0 Ataxia, unspecified; I10 Essential (primary) hypertension; J44.9 Chronic obstructive pulmonary disease, unspecified; G47.33 Obstructive sleep apnea (adult) (pediatric); R19.8 Other specified symptoms and signs involving the digestive system and abdomen; K80.50 Calculus of bile duct without cholangitis or cholecystitis without obstruction; E87.2 Acidosis; F12.90 Cannabis use, unspecified, uncomplicated; F31.9 Bipolar disorder, unspecified; D45 Polycythemia vera; R74.0 Nonspecific elevation of levels of transaminase and lactic acid dehydrogenase [LDH]; R91.1 Solitary pulmonary nodule; K85.90 Acute pancreatitis without necrosis or infection, unspecified; K59.00 Constipation, unspecified; E78.5 Hyperlipidemia, unspecified; N17.9 Acute kidney failure, unspecified; F17.210 Nicotine dependence, cigarettes, uncomplicated; K57.90 Diverticulosis of intestine, part unspecified, without perforation or abscess without bleeding; R13.10 Dysphagia, unspecified; N28.89 Other specified disorders of kidney and ureter
CPT/HCPCS: 2NASP; 74181; 36592; 71046; 74177; 80307; 81003; 82436; 93005; 93010; 96365; 96375; G0480; J1644; J1885; J3490; J7042